=== PATIENT | male | born 1990 | race Caucasian/White ===

== ENCOUNTER → 2016-08-12 | Outpatient (CLI) | payer OTHER ==
--- NOTE | 2016-08-12 14:51 | XR ---
EXAMINATION TYPE: XR knee complete LT DATE OF EXAM: 08/12/2016 2:46 PM COMPARISON: NONE HISTORY: Pain FINDINGS: Moderate arthropathy of the medial compartment of the knee joint. Osseous structures are intact. No acute fracture seen. Postsurgical change involving the distal femur. Small amount of fluid in the emmanuel prapatellar bursa. Tiny well-corticated bony density adjacent to the lateral tibial plateau appears c hronic. IMPRESSION: 1. No acute fracture or dislocation. 2. Postsurgical change. 3. Small amount of fluid in the suprapatellar bursa.
== END | disposition home or self-care (01) ==
LOC: RADXRMAIN 14:31
PROVIDERS: ATTEND Emergency Medicine
DX: S83.92XA Sprain of unspecified site of left knee, initial encounter (principal); Z98.890 Other specified postprocedural states

== ENCOUNTER → 2018-01-30 | Outpatient (CLI) | payer OTHER ==
--- NOTE | 2018-01-30 23:25 | MR ---
EXAMINATION TYPE: MR knee LT wo con DATE OF EXAM: 01/30/2018 COMPARISON: NONE HISTORY: Pain in left knee /Loose body TECHNIQUE: Multiplanar, multisequence imaging of the left knee is performed without IV contrast. FINDINGS: There is bone defect and metal artifact from reconstructive ligament surgery in the distal femur and proximal tibia. The posterior cruciate ligament is intact. Anterior cruciate ligament is not well def ined. There is moderate size knee joint effusion. There is some narrowing of the medial joint space. There is increased signal throughout most of the posterior horn of the heel meniscus. There is some t runcation also. Anterior horn medial meniscus is intact. The lateral meniscus is intact. The collateral ligaments are intact. I see no focal bone destruction. There is a thin osteochondral defect involving the articula r surface of the medial femoral condyle. I see no fracture. IMPRESSION: Complete tear anterior cruciate ligament. Complex extensive tear in the posterior horn medial meniscu s. 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 Osteochondral thin defect in the medial femora l condyle. Moderate joint effusion.
== END | disposition home or self-care (01) ==
LOC: RADMRIMAIN 16:39
PROVIDERS: ATTEND Orthopaedic Surgery
DX: S83.512A Sprain of anterior cruciate ligament of left knee, initial encounter (principal); S83.232A Complex tear of medial meniscus, current injury, left knee, initial encounter; M21.962 Unspecified acquired deformity of left lower leg